=== PATIENT | male | born 1980 | race Caucasian/White ===

== ENCOUNTER 2024-11-19 00:08 | Emergency (ER) | payer OTHER, SELFPAY ==
[2024-11-19 00:15] VITALS: BP 138/100
[2024-11-19 01:21] VITALS: BMI 22.1
--- NOTE | 2024-11-19 01:31 | ED.GENMED ---
History of Present Illness
<Amrita Morejon PA-C - Last Filed: 11/19/24 06:28>
General
Chief Complaint: Abdominal Pain
Source: patient
Exam Limitations: none
Time Seen by Provider: 11/19/24 01:19
Nursing documentation reviewed up to this point in time: agreed with
History of Present Illness
History of Present Illness:
44-year-old male with a past medical history of IV fentanyl drug use presents emergency department today with concerns of right-sided abdominal pain and bilateral upper and lower extremity edema. Patient states that the swelling and pain started a
few days ago. He also notes intermittent shortness of breath and syncopal episodes. Patient states that he has had swelling in his legs before it is gone away on its own but he is never had swelling in both of his hands. In terms of his abdominal
pain, patient reports that he notes the right side abdominal fullness which is constant. He has also had episodes of vomiting. He denies any fevers or chills. Patient states that he does use a combination of injection in both of his arms as well
as oral pills. He denies any other illicit drug use. He does not use any alcohol. He denies chest pain. He currently denies any dizziness or lightheadedness. Patient states that he has no prodromal symptoms to his syncope�-patient states that
he will be standing up in his house when suddenly he will lose consciousness and wake up on the ground. This has never happened to him before. Patient denies any history of heart disease or heart failure but was told that his heart rate was slow
in the past.
Review of Systems
<Amrita Morejon PA-C - Last Filed: 11/19/24 06:28>
Review of Systems
All Other Systems: ROS reviewed and negative except as documented in HPI and ROS
Phy Exam
<Amrita Morejon PA-C - Last Filed: 11/19/24 06:28>
Physical Exam
Physical Exam:
General: Patient is well appearing and in no acute distress; non-toxic
Skin: Warm and dry, no rashes or lesions
Head: Normocephalic, atraumatic
Eyes: Sclera non-icteric. EOMs intact.
Cardiac: Regular rate and rhythm, no murmurs
Peripheral Vascular: Mild upper extremity edema bilaterally with overlying abrasinos Bilateral lower extremity pitting pedal edema
Pulm: Normal respiratory effort, no wheezes, rales, or rhonchi
Abdomen: No abdominal tenderness to palpation, no visible swelling/distension
Neuro: CN II-XII intact, no focal neurologic deficits.
Psychiatric: Appropriate mood and affect.
Sepsis
<Amrita Morejon PA-C - Last Filed: 11/19/24 06:28>
Sepsis Screening
Sepsis Assessment: Sepsis Ruled Out
Sepsis Screen
Sepsis Screen: Sepsis Ruled Out
Date: 11/19/24
Time: 06:28
Course
<Amrita Morejon PA-C - Last Filed: 11/19/24 06:28>
Orders/Labs/Results
Orders:
Orders
11/19/24 01:19
IV Insert/Care/Rem.- Treatment PRN
11/19/24 01:32
EKG [Electrocardiogram (*1)] Urgent
Reason for Study: Syncope
EKG- Treatment ONCE
11/19/24 01:33
C-Reactive Protein Urgent
Comment: ADD ON
Complete Blood Count/With Diff Urgent
Comprehensive Metabolic Panel Urgent
Erythrocyte Sed Rate Urgent
Comment: ADD ON
Lipase Urgent
11/19/24 01:44
CR Chest - 2 Views Urgent
Comment:
Reason For Exam: shortness of breath
11/19/24 01:46
Electrocardiogram (*1) Urgent
Reason for Study: Chest Pain
11/19/24 02:01
CT Head W/o Iv Contrast Urgent
Comment:
Reason For Exam: syncope and collapse, posterior headache
11/19/24 02:22
Add On- LAB Urgent
Tests Added?: esr,crp
11/19/24 02:29
NT-proBNP Urgent
Troponin I Urgent
11/19/24 02:55
Orthostatic VS- Treatment ONCE
11/19/24 03:31
Abdomen/Pelvis wo Contrast CT [CT Abd/pelvis Wo Iv Cont] Urgent
Comment:
Reason For Exam: right sided abdominal pain
11/19/24 04:43
Orthostatic VS- Treatment ONCE
11/19/24 04:46
Naloxone [Narcan] 0.4 mg .ROUTE .STK-MED ONE
Naloxone [Narcan] 2 mg .ROUTE .STK-MED ONE
Abnormal Lab Results
11/19/24
01:33
RBC 3.71 L 10^6/uL
(4.70-6.10)
Hgb 10.8 L g/dL
(13.0-18.0)
Hct 31.4 L %
(39.0-52.0)
MPV 11.1 H fL
(7.4-10.4)
Absolute Monos (auto) 0.8 H 10^3/uL
(0.1-0.6)
Lymphocytes % 18.0 L %
(20.5-51.1)
Monocytes % 10.6 H %
(1.7-9.3)
Glucose 121 H mg/dl
(70-99)
Total Protein 5.9 L g/dl
(6.3-8.2)
11/19/24 01:33
11/19/24 01:33
Vital Signs
Initial and Last Documented VS:
Initial Vital Signs
Temp Pulse Resp BP Pulse Ox
99 F 58 24 138/100 100
04/14/25 00:15 11/19/24 00:15 11/19/24 00:15 11/19/24 00:15 11/19/24 00:15
Last Documented Vital Signs
Temp Pulse Resp BP Pulse Ox
99 F 49 14 191/117 97
11/19/24 00:15 11/19/24 04:45 11/19/24 03:45 11/19/24 04:40 11/19/24 04:45
<Hilda Michele, DO - Last Filed: 11/19/24 05:04>
Orders/Labs/Results
Orders:
Orders
11/19/24 01:19
IV Insert/Care/Rem.- Treatment PRN
11/19/24 01:32
EKG [Electrocardiogram (*1)] Urgent
Reason for Study: Syncope
EKG- Treatment ONCE
11/19/24 01:33
C-Reactive Protein Urgent
Comment: ADD ON
Complete Blood Count/With Diff Urgent
Comprehensive Metabolic Panel Urgent
Erythrocyte Sed Rate Urgent
Comment: ADD ON
Lipase Urgent
11/19/24 01:44
CR Chest - 2 Views Urgent
Comment:
Reason For Exam: shortness of breath
11/19/24 01:46
Electrocardiogram (*1) Urgent
Reason for Study: Chest Pain
11/19/24 02:01
CT Head W/o Iv Contrast Urgent
Comment:
Reason For Exam: syncope and collapse, posterior headache
11/19/24 02:22
Add On- LAB Urgent
Tests Added?: esr,crp
11/19/24 02:29
NT-proBNP Urgent
Troponin I Urgent
11/19/24 02:55
Orthostatic VS- Treatment ONCE
11/19/24 03:31
Abdomen/Pelvis wo Contrast CT [CT Abd/pelvis Wo Iv Cont] Urgent
Comment:
Reason For Exam: right sided abdominal pain
11/19/24 04:43
Orthostatic VS- Treatment ONCE
11/19/24 04:46
Naloxone [Narcan] 0.4 mg .ROUTE .STK-MED ONE
Naloxone [Narcan] 2 mg .ROUTE .STK-MED ONE
Abnormal Lab Results
11/19/24
01:33
RBC 3.71 L 10^6/uL
(4.70-6.10)
Hgb 10.8 L g/dL
(13.0-18.0)
Hct 31.4 L %
(39.0-52.0)
MPV 11.1 H fL
(7.4-10.4)
Absolute Monos (auto) 0.8 H 10^3/uL
(0.1-0.6)
Lymphocytes % 18.0 L %
(20.5-51.1)
Monocytes % 10.6 H %
(1.7-9.3)
Glucose 121 H mg/dl
(70-99)
Total Protein 5.9 L g/dl
(6.3-8.2)
11/19/24 01:33
11/19/24 01:33
Vital Signs
Initial and Last Documented VS:
Initial Vital Signs
Temp Pulse Resp BP Pulse Ox
99 F 58 24 138/100 100
11/19/24 00:15 11/19/24 00:15 11/19/24 00:15 11/19/24 00:15 11/19/24 00:15
Last Documented Vital Signs
Temp Pulse Resp BP Pulse Ox
99 F 49 14 191/117 97
11/19/24 00:15 11/19/24 04:45 11/19/24 03:45 11/19/24 04:40 11/19/24 04:45
[place];Amrita Morejon PA-C - Last Filed: 11/19/24 06:28>
MDM/Problems Addressed
Differential Diagnosis Includes:
Differentials include endocarditis, ACS, heart failure, vasovagal syncope, cardiogenic syncope, orthostatic hypotension, acute opioid intoxication
MDM/Problems Addressed:
44-year-old male with a past medical history of IV fentanyl drug use presents emergency department today with concerns of right-sided abdominal pain and bilateral upper and lower extremity edema. He also notes intermittent shortness of breath and
syncopal episodes, he denies chest pain. He states that he did syncopized and hit his head. There was initially concern for heart failure possibly secondary to a endocarditis however patient does not have a murmur on exam, he is afebrile, his
inflammatory markers are normal, CBC and CMP are unremarkable, and his CAT scan does not show any acute intra-abdominal pathology. Chest x-ray does not show any evidence of fluid overload. No concern for acute heart failure at this time. Suspect
symptoms related to fentanyl use. On reassessment, patient was found lethargic, snoring, did wake to sternal rub, with given Narcan but patient refused to take it, patient requesting be discharged home, did discuss opioid cessation, patient stable
for discharge.
Chronic conditions affecting care:
GERD, COVID
<Amrita Morejon PA-C - Last Filed: 11/19/24 06:28>
*Pulse Oximetry
Patient hypoxic: no
*Critical Care Note
Total Time (30-74mins, 75-104mins- exclusive of procedures): Not Applicable
Data Reviewed
Review of Other/Old Records Reveals: Records (Reviewed [facility], no previous ER/documentation or discharge summaries to review)
<Amrita Morejon PA-C - Last Filed: 11/19/24 06:28>
Update Note
Update Note:
4:56 AM, reassessment, patient was found to be actively using, offerred narcan, patient refusing and requesting to leave and states that he has narcan at home
ED Attending Note
<Amrita Morejon PA-C - Last Filed: 11/19/24 06:28>
-
Portions of this chart may have been created with voice recognition software.� Occasional wrong word or��sound alike� substitutions may have occurred due to the inherent limitations of voice recognition software.
<Hilda Michele DO - Last Filed: 11/19/24 05:04>
ED Attending Note
Patient seen and examined by attending physician: Yes
I performed a history and physical exam of patient and discussed management with resident, I reviewed resident's note and agree with documented findings and plan of care.: Yes
ED Attending Note:
44-year-old gentleman with a longstanding history of IV drug abuse presents with complaints of right upper quadrant abdominal distention, complains that his abdomen feels somewhat hard but denies pain. No nausea or vomiting. He admits to
occasional lightheadedness. Occasional falls but denies injury.
He has not had a fever. Vital signs within normal limits since arrival to the ED.
Persistently sleeping when undisturbed.
Exam remarkable for 44-year-old gentleman appears older than stated age. Drowsy but easily arousable.
HEENT: Oral mucosa is moist. Head is normocephalic, atraumatic.
Heart is regular rate and rhythm.
Lungs are clear to auscultation. Respirations are easy nonlabored.
Abdomen is soft without appreciable tenderness. No palpable masses.
Extremities: Mild nonpitting edema bilateral dorsal hands, bilateral feet. Track jaffe noted all 4 extremities. No evidence of abscess nor ulcerations. Peripheral pulses are full and equal.
Peripheral edema appears chronic, drug use in nature.
Nothing on exam to suggest CHF. Nothing to suggest cellulitis and reassuring that patient has been afebrile.
Labs are all reassuring including normal sed rate, normal CRP. Mildly elevated BNP.
Chest x-ray is unremarkable. No evidence of CHF.
CT of the head is unremarkable.
Unable to establish IV line and patient refusing IV team trial. CT abdomen pelvis result is pending but reviewed by myself, no evidence of acute intra-abdominal pathology.
I suspect patient's main issues are ongoing IV drug use but at this point nothing to suggest infectious process.
04:50
I have been called urgently to the bedside due to patient unresponsiveness and agonal respirations. Pulse ox 90 to 92%. Pinpoint pupils.
Our plan was for intranasal Narcan but patient wakes up with tactile and verbal stimuli.
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
He has been offered Narcan kit to take with him which he declines and states he has plenty of them.
Strongly encouraged he discontinue drug use, seek outpatient treatment for opioid use disorder and follow-up with PCP.
Discharge Plan
Departure
Patient Disposition: Home (Routine Discharge)
Date of Disposition: 11/19/24
Time of Disposition: 04:56
Patient with high blood pressure during this ER visit?: Yes
Condition: Good
Discharge Problem:
Abdominal pain, Pre-syncope
Instructions: Near Fainting, Abdominal Pain, BLOOD PRESSURE
Prescriptions:
No Action
gabapentin 600 mg Tablet
600 mg PO TID
omeprazole [Prilosec] 20 mg Capsule,Delayed Release(Dr/Ec)
20 mg PO DAILY
Referrals:
NONE,* [Family Provider] -
Activity Restrictions/Additional Instructions:
Please follow-up with your primary care provider.
PLEASE RETURN EMERGENCY DEPARTMENT IF YOU DEVELOP AN ACUTE WORSENING OF SYMPTOMS, INTRACTABLE NAUSEA OR VOMITING, FEVERS OR CHILLS, CHEST PAIN, SHORTNESS OF BREATH, OR ANY OTHER SIGNS OR SYMPTOMS WORRISOME TO YOU.
Interventions
Interventions:
*Risk Screen - Suicide Last Done: 11/19/24 00:15
*General Assessment Last Done: 11/19/24 01:21
*Neglect/Abuse Screening Last Done: 11/19/24 00:15
*ED- Fall Risk Assessment Last Done: 11/19/24 01:21
*ED COVID-19 Vaccine History Last Done: 11/19/24 01:21
*Nursing Disposition Last Done: 11/19/24 04:50
DX-Lgyntb-Gbobfuldkx Assessment Last Done: 11/19/24 01:36
Discharge Date and Time
Discharge Date/Time: 11/19/24 04:50
Print Language: PORTUGUESE
[2024-11-19 01:42] LABS: % Basophils 0.5 % (0-2); % Eosinophils 2.5 % (0-6); % Immature Granulocytes 0.3 % (0-0.5); % Monocytes 10.6 % (1.7-9.3); % Neutrophils 68.1 % (42.2-75.2); Absolute Eosinophils 0.2 10^3/uL (0-0.7); Absolute Lymphocytes 1.4 10^3/uL (1.2-3.4); Absolute Monocytes 0.8 10^3/uL (0.1-0.6); Absolute Neutrophils 5.2 10^3/uL (1.4-6.5); Hematocrit 31.4 % (39.0-52.0); Hemoglobin 10.8 g/dL (13.0-18.0); Mean Corp Hgb Conc. 34.4 g/dL (33.0-37.0); Mean Corpuscular Hgb 29.1 pg (27.0-31.0); Mean Corpuscular Volume 84.6 fL (80.0-94.0); Mean Platelet Volume 11.1 fL (7.4-10.4); Nucleated Red Blood Cells % 0.3 % (-); Platelet Count 142 10^3/uL (130-400); Red Blood Cell Count 3.71 10^6/uL (4.70-6.10); Red Cell Dist. Width 13.7 % (11.5-14.5); White Blood Cell Count 7.6 10^3/uL (4.8-10.8)
[2024-11-19 02:05] LABS: ALT (SGPT) 15 U/L (0-50); AST (SGOT) 29 U/L (17-59); Albumin 3.6 g/dl (3.5-5.0); Alkaline Phosphatase 75 U/L (38-126); Calcium 9.4 mg/dl (8.4-10.2); Carbon Dioxide 28 mmol/L (22-30); Chloride 107 mmol/L (98-107); Glucose 121 mg/dl (70-99); Potassium 4.3 mmol/L (3.5-5.1); Sodium 141 mmol/L (135-145); Total Bilirubin 0.8 mg/dl (0.2-1.3); Total Protein 5.9 g/dl (6.3-8.2)
[2024-11-19 02:18] LABS: Blood Urea Nitrogen 14 mg/dl (9-20); Estimated Creatinine Clearance > 125 ml/min; Lipase 26 U/L (23-300); eGFR > 60.00
[2024-11-19 02:35] VITALS: BP 149/95
[2024-11-19 03:00] VITALS: BP 119/74
[2024-11-19 03:00] LABS: NT-proBNP 1690 pg/ml; Troponin I 0.014 ng/ml
[2024-11-19 03:30] LABS: Erythrocyte Sed Rate 1 mm/hour (0-20)
[2024-11-19 04:40] VITALS: BP 191/117
--- NOTE | 2024-11-19 04:50 | EDRN ---
Upon re-assessing patient vital signs, patient found with snoring slow respirations, bradycardia, and pinpoint pupils. Dr Michele notified, ordered Narcan, but then patient awoke to sternal rub. Pt discharged by dr Michele. Pt offered Narcan to go, but
refused. Taken out of ED via wheelchair to be accompanied by security guards out front.
== END 2024-11-19 04:50 | disposition home or self-care (01) ==
LOC: EMR 00:08
PROVIDERS: Physician Assistant; EMERGENCY PHYSICIAN Emergency Medicine
DX: R10.9 Unspecified abdominal pain (principal); R55 Syncope and collapse; R03.0 Elevated blood-pressure reading, without diagnosis of hypertension; K21.9 Gastro-esophageal reflux disease without esophagitis
CPT/HCPCS: 99285; 70450; 71046; 74176; 80053; 83690; 83880; 84484; 85025; 85652; 86140; 93005